=== PATIENT | male | born 1975 | race Caucasian/White ===

== ENCOUNTER 2024-07-02 09:02 | Observation (INO) ==
[2024-07-02] MEDS: Lactated Ringers 1000 ml BAG 1,000 ML IV ONE ×3 (09:52→14:47)
[2024-07-02] MEDS: Pantoprazole VIAL 40 MG VIAL IV ONE (09:52)
[2024-07-02 10:06] LABS: Activated Partial Thrombo Time 34.5 seconds (26.0-38.0); INR 2.18 (0.85-1.14)
[2024-07-02 10:14] LABS: Hematocrit 23.6 % (38-53); Hemoglobin 8.2 g/dL (13.2-16.3); Mean Corpuscular Hemoglobin 36.5 pg (27-33); Mean Corpuscular Hgb Conc 34.9 g/dL (31-36); Mean Corpuscular Volume 104.5 fL (80-97); Red Blood Count 2.26 10^6/uL (4.06-5.63); Red Cell Distribution Width 14.1 % (12-17); White Blood Count 6.4 10^3/uL (3.6-10.2)
[2024-07-02 10:21] LABS: High Sens Troponin Baseline 13 pg/mL (<20)
[2024-07-02 10:36] LABS: ALT 36 U/L (7-52); AST 97 U/L (13-39); Albumin 2.1 g/dL (3.2-5.2); Albumin/Globulin Ratio 0.4 (1-3); Alcohol, S < 13 mg/dL (<13); Alkaline Phosphatase 67 U/L (35-149); Anion Gap 6 mmol/L (2-16); Blood Urea Nitrogen 33 mg/dL (6-24); CO2 Carbon Dioxide 27 mmol/L (22-32); Calcium 7.7 mg/dL (8.6-10.3); Chloride 98 mmol/L (101-111); Creatinine, Serum 1.06 mg/dL (0.67-1.17); Globulin 5.1 g/dL (2-4); Glucose 117 mg/dL (70-100); Lipase 42 U/L (11.0-82.0); Potassium 5.3 mmol/L (3.5-5.0); Sodium 131 mmol/L (135-145); Total Bilirubin 4.8 mg/dL (0.2-1.0); Total Protein 7.2 g/dL (6.4-8.9); eGFR CKD-EPI 87.7 (>60)
[2024-07-02 10:37] LABS: ABS Basophils 0.1 10^3/uL (0.0-0.1); ABS Monocytes 0.8 10^3/uL (0.0-1.1); ABS Neutrophils 4.6 10^3/uL (1.5-7.6); Eosinophil % 0.3 %; Lymphocyte % 15.4 %; Mean Platelet Volume 9.4 fL (7.5-11.2); Platelet Count 94 10^3/uL (150-450)
[2024-07-02] MEDS: Pantoprazole 80 mg in NS BAG 80 MG/250 ML BAG IV ONE (10:54)
[2024-07-02] MEDS ORDERED: LORazepam 2 mg VIAL 1 ml IV PUSH SCH (11:00)
[2024-07-02] MEDS: Thiamine 100 MG/ML 2 ml VIAL (200 mg) IM ONE ×2 (11:22→14:40)
[2024-07-02 11:28] LABS: High Sensitivity Troponin 1 Hr 13 pg/mL (<20)
[2024-07-02 12:54] LABS: Hematocrit 20.2 % (38-53)
[2024-07-02 14:34] LABS: % Iron Saturation 99 % (15-55); .Transferrin 142 mg/dL (203-362); Iron 197 ug/dL (50-212); Total Iron Binding Capacity 199 mcg/dL (250-450); Unsaturated Iron Binding 2 ug/dL
[2024-07-02 14:53] LABS: Ferritin 341.1 ng/mL (24-336)
[2024-07-02] MEDS: Multivitamins/Minerals TAB PO SCH (14:58)
[2024-07-02] MEDS: Octreotide Acetate 50 MCG in NS 0.9% 50 ML 50 ML IV ONE (14:59)
[2024-07-02 15:14] LABS: Cholesterol 110 mg/dL; HDL Cholesterol 4.9 mg/dL; LDL Cholesterol 83 mg/dL; Triglycerides 109 mg/dL
[2024-07-02] MEDS: Octreotide Acetate 500 MCG in NS 0.9% 100 ml BAG 100 ML IV SCH (15:18)
[2024-07-02] MEDS ORDERED: Prochlorperazine 5 mg/ml 2 ml VIAL (10 mg) IV PRN (16:09)
[2024-07-02 16:49] LABS: Urine Appearance Turbid; Urine Bilirubin Negative (Negative); Urine Blood 3+ (Negative); Urine Glucose Negative (Negative); Urine Ketones 1+ (Negative); Urine Nitrite Negative (Negative); Urine Protein 1+ (>=30 mg/dL) (Negative); Urine Specific Gravity 1.029 (1.002-1.030); Urine Urobilinogen 1+ (Negative); Urine pH 5.5 (5.0-8.0)
[2024-07-02 16:51] LABS: Urine Bacteria 1+ /HPF (Absent); Urine Red Blood Cell 3+(>10/hpf) /HPF (0-Trace); Urine Squamous Epithelial Cell Present /HPF (Absent); Urine White Blood Cell 1+(6-10/hpf) /HPF (0-Trace)
[2024-07-02 16:59] LABS: Hematocrit 20.3 % (38-53); Mean Corpuscular Hemoglobin 35.1 pg (27-33); Mean Corpuscular Hgb Conc 34.3 g/dL (31-36); Mean Corpuscular Volume 102.4 fL (80-97); Red Blood Count 1.99 10^6/uL (4.06-5.63); Red Cell Distribution Width 15.6 % (12-17); White Blood Count 6.3 10^3/uL (3.6-10.2)
[2024-07-02 17:01] LABS: Urine Color Dark-Orange
[2024-07-02 17:22] LABS: Mean Platelet Volume 9.1 fL (7.5-11.2); Platelet Count 74 10^3/uL (150-450)
[2024-07-02] MEDS: Phytonadione IV (Adult) 10 MG in NS 0.9% 50 ML 50 ML IV ONE (17:55)
[2024-07-02 20:19] LABS: ABS Basophils 0.1 10^3/uL (0.0-0.1); ABS Eosinophils 0.1 10^3/uL (0.0-0.5); ABS Lymphocytes 1.6 10^3/uL (1.0-4.8); ABS Monocytes 0.9 10^3/uL (0.0-1.1); ABS Neutrophils 3.9 10^3/uL (1.5-7.6); ABS Nucleated RBC 0.01 10^3/ul; Eosinophil % 0.8 %; Lymphocyte % 24.1 %; Nucleated Red Blood Cells % 0.1 %/100WBC (0.0-0.8)
[2024-07-02] MEDS: Pantoprazole 80 mg in NS BAG 80 MG/250 ML BAG IV SCH (21:10)
[2024-07-02] MEDS: Ondansetron 4 mg VIAL 2 MG/ML 2 ml VIAL IV PRN (21:46)
[2024-07-02 23:54] LABS: Urine Appearance Clear; Urine Bilirubin Negative (Negative); Urine Blood 3+ (Negative); Urine Color Dark-Yellow; Urine Glucose Negative (Negative); Urine Ketones Trace (Negative); Urine Nitrite Negative (Negative); Urine Protein Trace (Negative); Urine Specific Gravity 1.024 (1.002-1.030); Urine Urobilinogen 2+ (Negative)
[2024-07-03 00:49] LABS: Urine Red Blood Cell 3+(>10/hpf) (Absent)
[2024-07-03 00:51] LABS: Urine White Blood Cell Trace(0-5/hpf) (Absent)
[2024-07-03 01:55] LABS: Hematocrit 22.4 % (38-53); Hemoglobin 7.8 g/dL (13.2-16.3); Mean Corpuscular Hemoglobin 34.5 pg (27-33); Mean Corpuscular Volume 98.6 fL (80-97); Mean Platelet Volume 8.9 fL (7.5-11.2); Platelet Count 64 10^3/uL (150-450); Red Blood Count 2.27 10^6/uL (4.06-5.63); White Blood Count 5.2 10^3/uL (3.6-10.2)
[2024-07-03] MEDS: Octreotide Acetate 500 MCG in NS 0.9% 100 ml BAG 100 ML IV SCH (01:55)
[2024-07-03 06:15] LABS: Hematocrit 23.4 % (38-53); Hemoglobin 8.1 g/dL (13.2-16.3); Mean Corpuscular Hemoglobin 34.3 pg (27-33); Mean Corpuscular Hgb Conc 34.7 g/dL (31-36); Mean Corpuscular Volume 98.8 fL (80-97); Red Blood Count 2.36 10^6/uL (4.06-5.63); Red Cell Distribution Width 18.3 % (12-17); White Blood Count 4.7 10^3/uL (3.6-10.2)
[2024-07-03 06:20] LABS: Platelet Count 71 10^3/uL (150-450)
[2024-07-03 06:25] LABS: INR 2.17 (0.85-1.14)
[2024-07-03 06:36] LABS: Albumin 1.7 g/dL (3.2-5.2); Albumin/Globulin Ratio 0.4 (1-3); Creatinine, Serum 1.08 mg/dL (0.67-1.17); Globulin 4.3 g/dL (2-4); Magnesium 1.3 mg/dL (1.9-2.7); Phosphorus 2.7 mg/dL (2.5-5.0); Potassium 4.3 mmol/L (3.5-5.0); Total Bilirubin 4.7 mg/dL (0.2-1.0); eGFR CKD-EPI 85.7 (>60)
[2024-07-03] MEDS ORDERED: Multivitamins/Minerals TAB PO SCH (09:00)
[2024-07-03] MEDS: Magnesium Sulfate 2 gm BAG 2 GM/50 ML BAG IVPB ONE (09:38)
[2024-07-03] MEDS: Magnesium Sulfate IV 1GM/100ML 1 GM/100 ML BAG IV ONE (11:00)
[2024-07-03 11:54] LABS: Hematocrit 23.9 % (38-53); Hemoglobin 8.3 g/dL (13.2-16.3); Mean Corpuscular Hemoglobin 34.7 pg (27-33); Mean Corpuscular Hgb Conc 34.9 g/dL (31-36); Mean Corpuscular Volume 99.3 fL (80-97); Mean Platelet Volume 8.9 fL (7.5-11.2); Platelet Count 72 10^3/uL (150-450); Red Cell Distribution Width 18.3 % (12-17); White Blood Count 5.3 10^3/uL (3.6-10.2)
[2024-07-03 19:39] LABS: Hematocrit 24.5 % (38-53); Hemoglobin 8.5 g/dL (13.2-16.3); Mean Corpuscular Hemoglobin 34.6 pg (27-33); Mean Corpuscular Hgb Conc 34.8 g/dL (31-36); Mean Corpuscular Volume 99.4 fL (80-97); Mean Platelet Volume 8.5 fL (7.5-11.2); Platelet Count 75 10^3/uL (150-450); Red Blood Count 2.47 10^6/uL (4.06-5.63); Red Cell Distribution Width 18.4 % (12-17)
[2024-07-04 00:20] LABS: Hematocrit 21.8 % (38-53); Hemoglobin 7.6 g/dL (13.2-16.3); Mean Corpuscular Hemoglobin 34.4 pg (27-33); Mean Corpuscular Hgb Conc 34.7 g/dL (31-36); Mean Corpuscular Volume 99.3 fL (80-97); Red Cell Distribution Width 18.5 % (12-17); White Blood Count 4.1 10^3/uL (3.6-10.2)
[2024-07-04 00:23] LABS: Mean Platelet Volume 8.7 fL (7.5-11.2); Platelet Count 69 10^3/uL (150-450)
[2024-07-04 06:11] LABS: Hematocrit 22.7 % (38-53); Hemoglobin 7.8 g/dL (13.2-16.3); Mean Corpuscular Hemoglobin 34.3 pg (27-33); Mean Corpuscular Hgb Conc 34.5 g/dL (31-36); Mean Corpuscular Volume 99.5 fL (80-97); Red Blood Count 2.28 10^6/uL (4.06-5.63); Red Cell Distribution Width 18.2 % (12-17); White Blood Count 3.7 10^3/uL (3.6-10.2)
[2024-07-04 06:13] LABS: Mean Platelet Volume 8.5 fL (7.5-11.2); Platelet Count 70 10^3/uL (150-450)
[2024-07-04 06:53] LABS: Albumin 1.8 g/dL (3.2-5.2); Albumin/Globulin Ratio 0.4 (1-3); Calcium 7.2 mg/dL (8.6-10.3); Creatinine, Serum 1.1 mg/dL (0.67-1.17); Globulin 4.2 g/dL (2-4); Total Bilirubin 4.1 mg/dL (0.2-1.0); eGFR CKD-EPI 83.8 (>60)
[2024-07-04 13:47] LABS: Body Fluid Appearance Clear; Body Fluid Color Yellow; Body Fluid Source Peritonial Fluid
[2024-07-04 14:11] LABS: Hematocrit 25.5 % (38-53); Hemoglobin 8.7 g/dL (13.2-16.3); Mean Corpuscular Hemoglobin 34.5 pg (27-33); Mean Corpuscular Hgb Conc 34.2 g/dL (31-36); Mean Corpuscular Volume 100.7 fL (80-97); Mean Platelet Volume 9.1 fL (7.5-11.2); Platelet Count 77 10^3/uL (150-450); Red Blood Count 2.54 10^6/uL (4.06-5.63); Red Cell Distribution Width 18.4 % (12-17); White Blood Count 3.9 10^3/uL (3.6-10.2)
[2024-07-04 14:13] LABS: Body Fluid Total Nucleated 71.3 /mcL
[2024-07-04 14:23] LABS: Body Fluid Mono 76 %; Body Fluid Other Cells 6; Body Fluid Total Cells Counted 200
[2024-07-04] MEDS: Sulfamethox/Trimethoprim DS TAB 800/160 mg PO SCH (16:42)
[2024-07-04 17:40] VITALS: BP 102/72
[2024-07-05 13:11] LABS: Lactate Dehydrogenase, BF 64 U/L
[2024-07-06 10:30] LABS: Glucose, BF 120 mg/dL
[2024-07-06 10:32] LABS: Albumin, BF 0.8 g/dL; Fluid Type, Albumin Peritoneal Fluid; Fluid Type, Protein, Total Peritoneal Fluid
== END 2024-07-04 17:25 | disposition home or self-care (01) ==
LOC: EDHOLD 09:02 → ED 09:02 → SUATTDRO 13:55 → MED 15:45
PROVIDERS: ADMIT Internal Medicine; ATTEND Internal Medicine
PROC: O.GIEGD (2024-07-03 16:05)